=== PATIENT | female | born 2000 | race Asian ===

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

== ENCOUNTER 2018-01-11 17:08 | Emergency (ER) | payer OTHER ==
--- NOTE | 2018-01-11 18:02 | EDPHY ---
H & P Stated Complaint: left ear pain Time Seen by Provider: 01/11/18 17:49 HPI/ROS: CHIEF COMPLAINT: Left earlobe pain HISTORY OF PRESENT ILLNESS: The patient is a 17-year-old female who comes to the emergency department complaining of pain in her left earlobe. She is Mandarin speaking. [employer] used. She states that she got her ear pierced about a year ago but she had a mild infection so she took it out after a week. It was doing fine until about the last 5 days when it became inflamed again and now is increasingly painful. REVIEW OF SYSTEMS: Constitutional: denies: chills, fever, recent illness, recent injury EENTM: See HPI denies: blurred vision, double vision, nose congestion Respiratory: denies: cough, shortness of breath Cardiac: denies: chest pain, irregular heart rate, lightheadedness, palpitations Gastrointestinal/Abdominal: denies: abdominal pain, diarrhea, nausea, vomiting, blood streaked stools Genitourinary: denies: dysuria, frequency, hematuria, pain Musculoskeletal: denies: joint pain, muscle pain Skin: denies: lesions, rash, jaundice, bruising Neurological: denies: headache, numbness, paresthesia, tingling, dizziness, weakness Hematologic/Lymphatic: denies: blood clots, easy bleeding, easy bruising Immunologic/allergic: denies: HIV/AIDS, transplant EXAM: GENERAL: Well-appearing, well-nourished and in no acute distress. HEAD: Atraumatic, normocephalic. EYES: Pupils equal round and reactive to light, extraocular movements intact, sclera anicteric, conjunctiva are normal. ENT: Left eloped with small abscess centered around previous piercing site. TMs normal, nares patent, oropharynx clear without exudates. Moist mucous membranes. NECK: Normal range of motion, supple without lymphadenopathy or JVD. LUNGS: Breath sounds clear to auscultation bilaterally and equal. No wheezes rales or rhonchi. HEART: Regular rate and rhythm without murmurs, rubs or gallops. ABDOMEN: Soft, nontender, normoactive bowel sounds. No guarding, no rebound. No masses appreciated. BACK: No CVA tenderness, no spinal tenderness, step-offs or deformities EXTREMITIES: Normal range of motion, no pitting or edema. No clubbing or cyanosis. NEUROLOGICAL: Cranial nerves II through XII grossly intact. Normal speech, normal gait. 5/5 strength, normal movement in all extremities, normal sensation PSYCH: Normal mood, normal affect. SKIN: Warm, dry, normal turgor, no visible rashes or lesions. Source: Patient Exam Limitations: No limitations - Medical/Surgical History Hx Asthma: No Hx Chronic Respiratory Disease: No Hx Diabetes: No Hx Cardiac Disease: No Hx Renal Disease: No Hx Cirrhosis: No Hx Alcoholism: No Hx HIV/AIDS: No Hx Splenectomy or Spleen Trauma: No Other PMH: Denies - Family History Significant Family History: No pertinent family hx - Social History Smoking Status: Never smoked Alcohol Use: None Constitutional: Initial Vital Signs Temperature (C) 36.6 C 01/11/18 17:17 Heart Rate 63 01/11/18 17:17 Respiratory Rate 16 01/11/18 17:17 Blood Pressure 131/87 H 01/11/18 17:17 O2 Sat (%) 97 01/11/18 17:17 O2 Delivery Mode Room Air Allergies/Adverse Reactions: No Known Allergies Allergy (Unverified 01/11/18 17:21) Home Medications: Medication Instructions Recorded Sulfamethox/Tmp 800/160 mg 1 tab PO BID #14 tab 01/11/18 [Bactrim Ds] Medical Decision Making Procedures: Procedure: Abscess drainage. The patient's abscess was located on the left earlobe. I obtained verbal consent from the patient to drain the abscess who was informed about the possibility of bleeding and pain. The abscess was incised with 11 blade scalpel and small amount of purulent drainage was expressed. The patient tolerated the procedure well. The procedure was performed by myself. ED Course/Re-evaluation: 6:10 p.m. The patient tolerated the procedure well. A small amount of purulence obtained. I will start her on antibiotics well. She understands and agrees with this plan. We discussed follow-up and indications for returning. Differential Diagnosis: Partial list of the Differential diagnosis considered include but were not limited to; abscess, cellulitis, wound infection and although unlikely based on the history and physical exam, I also considered foreign body, otitis media, otitis externa. I discussed these differential diagnoses and the plan with the patient as well as the usual and expected course. The patient understands that the diagnosis is provisional and that in medicine we are not always correct and that further workup is often warranted. Usual and customary warnings were given. All of the patient's questions were answered. The patient was instructed to return to the emergency department should the symptoms at all worsen or return, otherwise to followup with the physician as we discussed. - Data Points Medications Given: Discontinued Medications Trimethoprim/Sulfamethoxazole (Bactrim Ds) 1 ea PO EDNOW ONE PRN Reason: Protocol Stop: 01/11/18 18:11 Last Admin: 01/11/18 18:17 Dose: 1 ea Departure - Departure Disposition: Home, Routine, Self-Care Clinical Impression: Abscess of left earlobe Condition: Fair Instructions: Abscess (ED) Referrals: [facility],. [Clinic] - As per Instructions Prescriptions: Sulfamethox/Tmp 800/160 mg [Bactrim Ds] 1 tab PO BID #14 tab
[2018-01-11] MEDS ORDERED: SULFAMETHOX/TMP 800/160 MG 1 TAB PO ONE (18:10)
[2018-01-11 18:21] VITALS: BP 112/77
== END 2018-01-11 18:20 | disposition home or self-care (01) ==
PROC: 0991XZZ Drainage of Left External Ear, External Approach (ICD-10-PCS; principal; 2018-01-11)
DX: H60.02 Abscess of left external ear (principal)